=== PATIENT | male | born 1975 | race Caucasian/White ===

== ENCOUNTER 2019-08-23 15:45 | Outpatient (CLI) | payer OTHER, SELFPAY ==
[2019-08-23 16:34] LABS: ALT 136 U/L (16-63); AST 50 U/L (15-37); Albumin 3.9 g/dL (3.4-5.0); Alkaline Phosphatase 86 U/L (46-116); BUN 15 mg/dL (7-18); Bilirubin, Total 0.5 mg/dL (0.2-1.0); CREATININE 0.91 mg/dL (0.70-1.30); Calcium 9.9 mg/dL (8.5-10.1); Chloride 103 mmol/L (98-107); Glucose 90 mg/dL (74-106); Potassium 4.1 mmol/L (3.5-5.1); Sodium 141 mmol/L (136-145); TSH (W/Ref FT4) 1.18 uIU/mL (0.36-3.74); Total Protein 7.2 g/dL (6.4-8.2)
[2019-08-23 16:54] LABS: D-Dimer 335 ng/mlFEU (<500)
[2019-08-27 14:09] LABS: Hepatitis A Antibody IgM Negative (Negative); Hepatitis B Core Antibody Negative (Negative); Hepatitis B surface Ag Negative (Negative); Hepatitis C Ab w Rflx HCV PCR Negative (Negative)
== END 2019-08-23 16:05 ==
PROVIDERS: PCP Family Medicine; Visit Provider Nurse Practitioner Family
DX: R06.02 Shortness of breath (principal); M79.604 Pain in right leg; R14.0 Abdominal distension (gaseous); R60.0 Localized edema; E66.9 Obesity, unspecified; R74.0 Nonspecific elevation of levels of transaminase and lactic acid dehydrogenase [LDH]
CPT/HCPCS: 36415; 80053; 86704; 86709; 86803; 87340; 84443; 85379

== ENCOUNTER 2019-08-28 00:29 | Outpatient (CLI) | payer OTHER, SELFPAY ==
--- NOTE | 2019-08-28 | DI.US_ITS ---
EXAM: US ABDOMEN CLINICAL HISTORY: ELEVATED TRANSAMINASES, R74.0 TECHNIQUE: Ultrasound abdomen performed using standard protocol. COMPARISON: No exams were available for comparison FINDINGS: LIVER: 15.4 cm in length. Diffuse increased echogenicity consistent with hepatic steatosis. No hepa tic mass. Hepatopedal flow in the Portal Vein. GALLBLADDER: No evidence of cholelithiasis. No evidence of wall thickening. No pericholecystic fluid identified. KIDNEYS: Kidneys are symmetric in size. No evidence of renal calculi. No evidence of hydronephrosis. No renal mass or cyst identified. BILIARY SYSTEM: Common bile duct measures 2.8 mm. No intrahepatic biliary ductal dilation. BRUNO'S SIGN: Negative. PANCREAS: Normal where visualized. SPLEEN: Not enlarged. ABDOMINAL AORTA AND IVC: Visualized portions normal caliber. ASCITES: None seen. IMPRESSION: Hepatic steatosis. DATA REPOSITORY:
== END 2019-08-28 00:49 ==
PROVIDERS: PCP Family Medicine; Visit Provider Nurse Practitioner Family
DX: R74.0 Nonspecific elevation of levels of transaminase and lactic acid dehydrogenase [LDH] (principal); K76.0 Fatty (change of) liver, not elsewhere classified
CPT/HCPCS: 76700

== ENCOUNTER 2020-03-15 20:51 | Emergency (ER) | payer OTHER, SELFPAY ==
[2020-03-15 20:58] VITALS: BP 125/73; PULSE 91; RESP 20; TEMP 36.9; O2SAT 97
--- NOTE | 2020-03-15 21:00 | DI.RAD_ITS ---
EXAM: XR HIP RT COMPLETE AP PELVIS INDICATION: pain, trauma. COMPARISON: No exams were available for comparison TECHNIQUE: 2D digital imaging was performed. FINDINGS: No fracture or dislocation is seen. SI joints and pubic symphysis appear intact. There is minimal spurring at the acetabulum IMPRESSION: No acute abnormality. DATA REPOSITORY: RADIATION DOSE DELIVERED:
--- NOTE | 2020-03-15 21:00 | DI.RAD_ITS ---
EXAM: XR KNEE LT 4V AP,LAT,ALESHIA,PAT CLINICAL HISTORY: ant tender, trauma. TECHNIQUE: 2D digital imaging was performed. COMPARISON: CR LEFT KNEE COMPLETE from 08/28/2008 FINDINGS: BONES: No acute fracture is present. No bony destructive lesion is seen. JOINTS: The knee is normally aligned. No joint effusion is seen. SOFT TISSUE: Swelling and laceration in the prepatellar soft tissues. IMPRESSION: Prepatellar soft tissue swelling and laceration. DATA REPOSITORY: RADIATION DOSE DELIVERED:
--- NOTE | 2020-03-15 21:00 | DI.RAD_ITS ---
EXAM: XR ANKLE RT COMPLETE CLINICAL HISTORY: tender lat, trauma TECHNIQUE: 2D digital imaging was performed. COMPARISON: No exams were available for comparison FINDINGS: No fracture or ankle mortise widening is seen. The talar dome appears intact. There is there is min imal spurring at the Achilles insertion on the calcaneus. IMPRESSION: No acute abnormality.
--- NOTE | 2020-03-15 21:13 | ED.GENADUL_ITS ---
Discharge Plan Disposition Patient Disposition: HOME Condition: Stable Discharge Details Clinical Impression: Fall down embankment ([place]), initial encounter, Laceration of knee, left, Abrasions of multiple sites, Contusion of hip, right, Right ankle sprain Primary Care Provider: Lucy Briceno ED Provider: Jefferson Slater Home Meds and New Rx's Prescriptions: New cephalexin [Keflex] 500 mg capsule 500 mg PO BID Qty: 6 RF: 0 Continued Flovent HFA 120 PUFF HFA aerosol inhaler 2 puff Inhalation PRN PRNRF: 0 omeprazole 20 mg Capsule,Delayed Release(Dr/Ec) 20 mg PO DAILY PRNRF: 0 Discharge Instructions Instructions: Ankle Sprain (ED), Laceration (ED), Contusion in Adults (ED), Abrasion (ED) Additional Instructions: Your sutures need to be removed in 12 to 14 days. Dressing intact for next 2 days and then change dressing daily thereafter. Monitor for signs of infection including increased warmth, redness, swelling, discharge or pain. Please take antibiotic as prescribed. Use ankle stabilizer to provide ankle support. If pain persist you should have additional diagnostic imaging. Please contact your primary care physician to arrange follow-up. Return to the ER for any worsening or new concerning symptoms. Referrals: Lucy Briceno [Primary Care Provider] - Medical Decision Making 2121??44-year-old male here after fall down steep hill with injury to his lower extremities bilaterally. Patient has complex laceration anterior left knee with some tenderness in that area. Consider patellar fracture. Patient also with tenderness to right hip and right lateral ankle. Consider fracture. Will obta in x-ray imaging. Tetanus up-to-date. Will anesthetize wound and irrigate. --X-ray of the right ankle was reviewed interpreted by radiology: No acute bony pathology. X-ray of the left knee was reviewed interpreted by radiology: No acute bony pathology. Soft tissue swelling anterior knee. Quadriceps and patellar tendons appear grossly intact and there is no significant joint effusion. X-ray of the right hip with pelvis reviewed and interpreted by radiology: No acute bony pathology. --Copious irrigation and extensive cleansing, complex suture repair with subcutaneous and cutaneous sutures. Wound borders well approximated and hemostasis achieved. Sterile dressing applied. Other abrasions were cleansed by nursing. Usual customary discharge instructions reviewed with the patient. HPI General Mode of arrival: ambulatory . Date/Time Provider Initiated Documentation: 03/15/20 20:52 . Limitations to Documentation: no limitations . Information obtained by: patient . HPI Narrative: 44-year-old male presents with chief complaint of right leg pain. Patient notes he was hiking in on a steep section off [place] and slipped and fell down 2 sections of the slope inj uring his right ankle and right hip as well as left knee. Pain is moderate worse with ambulation. He sustained laceration to the left knee. Wound was initially bleeding. Bleeding has stopped. Related Data Home Medications Medication Instructions Recorded Confirmed Flovent HFA 2 puff INHALATION PRN PRN 09/03/15 03/15/20 cephalexin [Keflex] 500 mg PO BID #6 cap 03/15/20 omeprazole 20 mg PO DAILY PRN 03/15/20 03/15/20 Previous Rx's Medication Instructions Recorded cephalexin [Keflex] 500 mg PO BID #6 cap 03/15/20 Allergies Allergy/AdvReac Type Severity Reaction Status Date / Time acetaminophen [From Vicodin] AdvReac Intermediate Dizziness/L Unverified 03/15/20 21:12 ightheade hydrocodone [From Vicodin] AdvReac Intermediate Dizziness/L Unverified 03/15/20 21:12 ightheade General Stated Complaint: Trauma PROSPER: 2 Review of Systems All systems reviewed & are unremarkable except as noted in HPI and below Cardiovascular Cardiovascular: Denies dyspnea Respiratory Respiratory: Denies dyspnea Gastrointestinal Gastrointestinal: Denies abdominal pain Musculoskeletal Musculoskeletal: Reports as per HPI Integumentary/Breasts Skin/Breast: Reports as per HPI [facility] Social History Smoking/Tobacco Use Status: Never Alcohol Intake: never Drug use: Never Substance use type: does not use Do you feel safe at home: Yes Do you feel safe in your relationship?: Yes Exam Const General: cooperative and no acute distress HENMT Head: normocephalic and atraumatic Mouth: moist mucous membranes Eyes Conjunctivae: normal conjunctivae Sclera: normal sclerae Neck Neck: full ROM, trachea midline, supple and nontender Resp Auscultation: clear to auscultation bilaterally, no rales, no rhonchi and no wheezes Cardio Rate: regular rate and not tachycardic Rhythm: regular rhythm GI Palpation: soft, not firm, no guarding, no masses, not rigid and nontender Back/Spine/Pelvis Cervical Spine: cervical ROM normal, No cervical spinal tenderness and No step off deformity Thoracic/Lumbar Spine: No thoracic spinal tenderness and No lumbar spinal tenderness Skin Trauma: abrasion (Multiple bilateral lower extremities) and laceration (Complex over left knee extending deep and adipose) Other: Right fourth nail with some bleeding from at the end of the game, nailbed intact Neuro General: patient alert, patient awake and tone normal Sensory Exam: no sensory deficits noted Extrem Right lower extremity: hip/thigh Details: tenderness Location: of the hip and abrasion; no swelling, knee Details: no tenderness and no swelling, lower leg Details: abrasion; no tenderness and ankle Details: tenderness Location: of the lateral malleolus Left lower extremity: knee Details: tenderness Location: of the patella and laceration (Anteriorly) Other: Patellar and quadriceps tendon intact patient able to raise his leg and keep extended Psych Appearance: grossly normal Mental Status: mental status grossly normal Course Vital Signs Vital signs: Vital Signs Temperature 36.9 C 03/15/20 20:58 Pulse 91 H 03/15/20 20:58 Respiratory Rate 20 03/15/20 20:58 Blood Pressure 125/73 03/15/20 20:58 Pulse Oximetry 97 03/15/20 20:58 Temperature 36.9 C 03/15/20 20:58 Temperature Source Temporal Artery Scan 03/15/20 20:58 Pulse 91 H 03/15/20 20:58 Respiratory Rate 20 03/15/20 20:58 Respiratory Effort Non-Labored 03/15/20 21:03 Blood Pressure 125/73 03/15/20 20:58 Blood Pressure Position Sitting 03/15/20 20:58 Pulse Oximetry 97 03/15/20 20:58 Oxygen Delivery Method Room Air 03/15/20 20:58 Oxygen Flow Rate 0 03/15/20 20:58 Procedures Laceration Laceration 1: Site: lower extremity Side (If applicable): left Size (cm): 7 Description: stellate Local Anesthetic: Lidocaine 1% and with Epi Amount of anesthesia used (mL): 5 Pre-repair: wound explored, irrigated extensively and deep structures intact Skin layer closed with: nylon Size (cm): 4-0 Number of sutures: 14 Subcutaneous layer closed with: vicryl Size: 4-0 Number of sutures: 4 Technique: simple, interrupted
[2020-03-15] MEDS: Lidocaine/Epinephri/Tetracaine Topical Gel 3 ML TP (21:20)
[2020-03-15 21:54] VITALS: BP 131/84; PULSE 85; RESP 18; O2SAT 98
--- NOTE | 2020-03-15 22:00 | DI.VRAD_ITS ---
PROCEDURE INFORMATION: Exam: XR Left Knee Exam date and time: 03/15/2020 21:28 Age: 44 years old Clinical indication: Pain; Knee; Left; Patient HX: Anterior tenderness TECHNIQUE: Imaging protocol: XR Left knee. Views: 4 or more views. COMPARISON: No relevant prior studies available. FINDINGS: Bones/joints: Minimal degenerative changes in the medial and lateral compartments. No acute fracture or subluxation. Soft tissues: Soft tissue swelling, anterior knee. Quadriceps and patellar tendons appear grossly intact and there is no significant joint effusion. IMPRESSION: 1. No acute bony pathology. 2. Soft tissue swelling, anterior knee. Quadriceps and patellar tendons appear grossly intact and there is no significant joint effusion. Dictated and Authenticated by: Elena Ledesma MD. Ordering:INA Paulino MD
--- NOTE | 2020-03-15 22:01 | DI.VRAD_ITS ---
PROCEDURE INFORMATION: Exam: XR Right Hip with Pelvis when Performed Exam date and time: 03/15/2020 21:25 Age: 44 years old Clinical indication: Hip pain; Right hip; Patient HX: Pain, trauma TECHNIQUE: Imaging protocol: XR Right hip with pelvis when performed. Views: 2 or 3 views. COMPARISON: No relevant prior studies available. FINDINGS: Bones/joints: No acute fracture or subluxation. Soft tissues: Unremarkable. IMPRESSION: No acute bony pathology. Dictated and Authenticated by: Elena Ledesma MD. Ordering:INA Paulino MD
--- NOTE | 2020-03-15 22:01 | DI.VRAD_ITS ---
PROCEDURE INFORMATION: Exam: XR Right Ankle Exam date and time: 03/15/2020 21:31 Age: 44 years old Clinical indication: Pain; Ankle; Right; Patient HX: Tender lateral TECHNIQUE: Imaging protocol: XR Right ankle. Views: 3 or more views. COMPARISON: No relevant prior studies available. FINDINGS: Bones/joints: No acute fracture or subluxation. Posterior calcaneal spur. Soft tissues: Generalized soft tissue swelling. IMPRESSION: No acute bony pathology. Dictated and Authenticated by: Elena Ledesma MD. Ordering:INA Paulino MD
[2020-03-15] MEDS: Cephalexin 500 MG CAP PO (22:41)
[2020-03-15] MEDS: Bacitracin 1 PACKET (23:07)
== END 2020-03-15 23:05 | disposition home or self-care (01) ==
PROVIDERS: Emergency Provider Student in an Organized Health Care Education/Training Program; PCP Family Medicine
DX: S81.012A Laceration without foreign body, left knee, initial encounter (principal); S70.211A Abrasion, right hip, initial encounter; S90.511A Abrasion, right ankle, initial encounter; S93.401A Sprain of unspecified ligament of right ankle, initial encounter; W17.81XA Fall down embankment (hill), initial encounter; Y93.01 Activity, walking, marching and hiking
CPT/HCPCS: 12032; 99283; 73502; 73564; 73610; 99282; L1902

== ENCOUNTER 2020-03-21 17:25 | Emergency (ER) | payer OTHER, SELFPAY ==
--- NOTE | 2020-03-21 17:26 | W.ED.GENAD ---
Discharge Plan Disposition Patient Disposition: HOME Condition: Stable Discharge Details Clinical Impression: Cellulitis of knee, left, Visit for suture removal, Poison zena dermatitis Primary Care Provider: Lucy Briceno ED Provider: Nida Manrique Home Meds and New Rx's Prescriptions: New clindamycin HCl 150 mg capsule 450 mg PO TID 7 Days Qty: 63 RF: 0 mupirocin 2 % ointment 1 applic TP BID Qty: 15 RF: 0 prednisone 20 mg tablet See Rx Instructions .ROUTE .COMPLEX Qty: 36 RF: 0 Continued Flovent HFA 120 PUFF HFA aerosol inhaler 2 puff Inhalation PRN PRNRF: 0 omeprazole 20 mg Capsule,Delayed Release(Dr/Ec) 20 mg PO DAILY PRNRF: 0 cephalexin [Keflex] 500 mg capsule 500 mg PO BID Qty: 6 RF: 0 Discharge Instructions Instructions: Cellulitis (ED), Poison Zena (ED) Additional Instructions: Take the antibiotics and steroids until finished. Use the topical antibiotic ointment as directed. Wash the area with soap and water and pat dry. Keep wound clean and dry. Cover wound with bandage if risk of contamination or injury and while sleeping at night. Otherwise you can keep the wound open to air if resting at home to allow edges to dry and heal. Return to the emergency department in 2 days for wound check. Return to the emergency department earlier at any time if you develop any worsening or new concerning symptoms such as fever, increased pain, redness or swelling. Discharge Data Discharge Date/Time-TO BE ENTERED AT DEPARTURE: 03/21/20 18:20 Discharge Physician: Nida Manrique Medical Decision Making 44yo M who is 6 days s/p fall with L knee laceration and suture placement presents with redness and pus drainage around wound site as well as poison zena rash. Patient appears nontoxic. He has [address] at left knee laceration site. There is white soft macerated tissue noted to left anterior knee. There is surrounding mild erythema but no significant pain with flexion. Presentation not consistent with septic joint at this time. Patient is also noted to have erythematous papules and vesicles some arranged in clusters in linear fashion to the bilateral lower extremities and right back consistent with poison zena dermatitis. 7 sutures removed at bedside to allow wound to drain if needed. 7 sutures still remaining in place. Area was irrigated and covered with bacitracin and nonadherent dressing. Will start with clindamycin for early cellulitis in addition to Bactroban ointment. We will also start on p.o. steroids for poison zena dermatitis. Skin markings placed around areas of mild erythema. Patient advised to return here in 2 days for wound check. He is advised to return here earlier with any concerning infectious symptoms such as fever, increased pain or significant worsening. Medical Records Medical records reviewed: Yes I reviewed the patient's medical records. HPI General Mode of arrival: ambulatory. Date/Time Provider Initiated Documentation: 03/21/20 17:25. Limitations to Documentation: no limitations. Information obtained by: patient. HPI Narrative: Patient is a 44-year-old male who is 6 days status post fall with left knee laceration who presents with concern for infection at his left knee wound site. Patient states he removed the dressing for the first time yesterday and allowed water to hit it in the shower and noticed the area around the site was mildly red and draining yellowish-red liquid. He denies any significant worsening pain. He states his marked the area of redness around the knee today. He denies any known fever. He states he was given 6 tabs of Keflex which he took after his initial injury. He also states he started developing a poison zena rash on his legs which he was exposed to at the time of his fall that is now worsening on his legs and back. He states he has been using calamine lotion without relief. Related Data Home Medications Medication Instructions Recorded Confirmed Flovent HFA 2 puff INHALATION PRN PRN 09/03/15 03/15/20 cephalexin [Keflex] 500 mg PO BID #6 cap 03/15/20 omeprazole 20 mg PO DAILY PRN 03/15/20 03/15/20 clindamycin HCl 450 mg PO TID 7 Days #63 cap 03/21/20 mupirocin 1 applic TP BID #15 gm 03/21/20 prednisone See Rx Instructions .ROUTE 03/21/20 .COMPLEX #36 tab Previous Rx's Medication Instructions Recorded cephalexin [Keflex] 500 mg PO BID #6 cap 03/15/20 clindamycin HCl 450 mg PO TID 7 Days #63 cap 03/21/20 mupirocin 1 applic TP BID #15 gm 03/21/20 prednisone See Rx Instructions .ROUTE 03/21/20 .COMPLEX #36 tab Allergies Allergy/AdvReac Type Severity Reaction Status Date / Time acetaminophen [From Vicodin] AdvReac Intermediate Dizziness/L Unverified 03/21/20 17:37 ightheade hydrocodone [From Vicodin] AdvReac Intermediate Dizziness/L Unverified 03/21/20 17:37 ightheade General PROSPER: 2 Review of Systems All systems reviewed & are unremarkable except as noted in HPI and below Constitutional Constitutional: Reports as per HPI, Denies chills and Denies fever(s) Eyes Eyes: Denies blurry vision ENT Ears, Nose, Mouth, and Throat: Denies dizziness, Denies sore throat and Denies throat swelling Cardiovascular Cardiovascular: Denies chest pain and Denies dyspnea Respiratory Respiratory: Denies cough and Denies dyspnea Gastrointestinal Gastrointestinal: Denies abdominal pain, Denies diarrhea and Denies vomiting Genitourinary Genitourinary: Denies hematuria and Denies dysuria Musculoskeletal Musculoskeletal: Denies back pain and Denies numbness Integumentary/Breasts Skin/Breast: Denies lesions and Reports rash Neurologic Neurologic: Denies dizziness, Denies localized weakness and Denies numbness Allergic/Immunologic Allergic/Immunologic: Denies throat swelling [facility] Medical History (Updated 03/21/20 @ 18:10 by Nida Manrique DO) No significant past medical history Surgical History (Updated 03/21/20 @ 18:10 by Nida Manrique DO) No significant past surgical history Social History Smoking/Tobacco Use Status: Never Alcohol Intake: never Drug use: Never Substance use type: does not use Do you feel safe at home: Yes Do you feel safe in your relationship?: Yes Exam Const General: cooperative, healthy appearing and no acute distress HENMT Head: normal to inspection Mouth: oral mucosae normal Eyes General: appearance normal, both eyes and all related structures Neck Neck: normal visual inspection Resp Effort & Inspection: normal respiratory effort and able to speak in complete sentences Cardio Rate: regular rate Back/Spine/Pelvis Back/spine/pelvis image: 1. Raised erythematous papules and vesicles. Skin Other: Scattered papules and vesicles, some in ranged in linear fashion or clusters noted to bilateral lower extremities. There is calamine lotion noted overlying rash. There is minimal edema of bilateral lower extremities. Neuro General: patient alert, patient awake and patient oriented x3 Motor: muscle tone normal throughout Extrem Knee images: 1. Laceration with [address] There is white surrounding soft macerated tissue. There is serous drainage but no yellow pus. 2. Area outlining mild erythema extending from wound site. There is mild erythema within this area, more pronounced just superior to the laceration. There is no fluctuance, induration. Other: No significant pain with motion at left knee. Minimal tenderness to palpation of left anterior knee. Distal pulses intact. Psych Appearance: grossly normal Affect: normal affect Procedures Laceration Laceration 1: Size (cm): 6
[2020-03-21 17:29] VITALS: BP 140/91; PULSE 93; RESP 14; TEMP 36.6; O2SAT 96
[2020-03-21] MEDS: predniSONE 20 MG TAB 60 MG PO (18:01)
[2020-03-21] MEDS: Clindamycin 150 MG CAP 450 MG PO (18:01)
[2020-03-21] MEDS: Clindamycin 150 MG CAP, 12 CAPS/BTL 450 MG PO (18:20)
== END 2020-03-21 18:20 | disposition home or self-care (01) ==
PROVIDERS: Emergency Provider Physician Assistant; PCP Family Medicine
DX: S81.012A Laceration without foreign body, left knee, initial encounter (principal); W17.81XA Fall down embankment (hill), initial encounter; L03.116 Cellulitis of left lower limb; L23.7 Allergic contact dermatitis due to plants, except food
CPT/HCPCS: 99283; J7512

== ENCOUNTER 2020-03-31 10:25 | Emergency (ER) | payer OTHER, SELFPAY ==
[2020-03-31 10:29] VITALS: BP 130/79; PULSE 72; RESP 15; TEMP 36.4; O2SAT 98
--- NOTE | 2020-03-31 10:49 | ED.GENADUL_ITS ---
Discharge Plan Disposition Patient Disposition: HOME Condition: Stable Discharge Details Clinical Impression: Visit for suture removal Primary Care Provider: Lucy Briceno ED Provider: Alisia Ramesh Home Meds and New Rx's Prescriptions: New cephalexin 500 mg tablet 500 mg PO BID 5 Days Qty: 10 RF: 0 No Action Flovent HFA 120 PUFF HFA aerosol inhaler 2 puff Inhalation PRN PRNRF: 0 mupirocin 2 % ointment 1 applic TP BID Qty: 15 RF: 0 prednisone 20 mg tablet See Rx Instructions .ROUTE .COMPLEX Qty: 36 RF: 0 clindamycin HCl 150 mg capsule 450 mg PO TID RF: 0 omeprazole 20 mg Capsule,Delayed Release(Dr/Ec) 20 mg PO DAILY PRNRF: 0 cephalexin [Keflex] 500 mg capsule 500 mg PO BID Qty: 6 RF: 0 Discharge Instructions Instructions: Acute Wounds (ED), Stitches Removal (ED) Additional Instructions: Follow up with primary care provider in 3-5 days. Return to ED sooner if any worsening or concerns. Increase oral fluids. Please take Tylenol or Ibuprofen with food every 4-6 hours as needed for pain and swelling. Keep clean and dry. Return for any worsening redness swelling or any concerns. Referrals: Lucy Briceno [Primary Care Provider] - Discharge Data Discharge Date/Time-TO BE ENTERED AT DEPARTURE: 03/31/20 11:01 Medical Decision Making 44-year-old male presents to the ED for suture removal to his left knee. Patient had sutures placed approximately 10 days ago and was treated for cellulitis of his knee. 7 sutures were since removed to allow me to drain. He does have 7 sutures simple interrupted in place. There is a healing laceration noted vertically to his anterior knee. There is some yellow purulent drainage noted to the wound bed. He is currently taking clindamycin 3 times a day and prednisone daily on a tapering dose. Initial injury involved him sliding down a couple of hills through [place] landing on all fours sustaining a laceration. He reports that the erythema has decreased since then, swelling has gone down, no fevers or chills. 7 sutures removed, rest of the wound will be healed by secondary intention. Will place patient on approximately 7 days of cephalexin. He also is reporting right ankle pain from previous injury, we did do x-rays at the time of the injury which were negative for fracture. 7 simple interrupted sutures removed patient instructed on home care. Patient has 2 days left of clindamycin prescription and is taking prednisone for poison ju[place] jose. Will place patient on 5 more days of cephalexin 5 oh milligrams twice a day. Instructed to keep clean and dry, verbalized understanding. Patient is still complaining of right ankle pain discussed sprain and healing time with patient and reiterated rest, ice, compression, elevation. Verbalized understanding. He does have a home which he is not wearing upon arrival at this time. HPI General Mode of arrival: ambulatory . Date/Time Provider Initiated Documentation: 03/31/20 10:26 . Limitations to Documentation: no limitations . Information obtained by: patient . HPI Narrative: 44-year-old male presents to the ED for suture removal to his left knee. Patient had sutures placed approximately 10 days ago and was treated for cellulitis of his knee. 7 sutures were since removed to allow me to drain. He does have 7 sutures simple interrupted in place. There is a healing laceration noted vertically to his anterior knee. There is some yellow purulent drainage noted to the wound bed. He is currently taking clindamycin 3 times a day and prednisone daily on a tapering dose. Initial injury involved him sliding down a couple of hills through [place] landing on all fours sustaining a laceration. He reports that the erythema has decreased since then, swelling has gone down, no fevers or chills. 7 sutures removed, rest of the wound will be healed by secondary in tention. Will place patient on approximately 7 days of cephalexin. He also is reporting right ankle pain from previous injury, we did do x-rays at the time of the injury which were negative for fracture. Related Data Home Medications Medication Instructions Recorded Confirmed Flovent HFA 2 puff INHALATION PRN PRN 09/03/15 03/31/20 cephalexin [Keflex] 500 mg PO BID #6 cap 03/15/20 omeprazole 20 mg PO DAILY PRN 03/15/20 03/31/20 mupirocin 1 applic TP BID #15 gm 03/21/20 03/31/20 prednisone See Rx Instructions .ROUTE 03/21/20 03/31/20 .COMPLEX #36 tab cephalexin 500 mg PO BID 5 Days #10 tab 03/31/20 clindamycin HCl 450 mg PO TID 03/31/20 03/31/20 Previous Rx's Medication Instructions Recorded cephalexin [Keflex] 500 mg PO BID #6 cap 03/15/20 mupirocin 1 applic TP BID #15 gm 03/21/20 prednisone See Rx Instructions .ROUTE 03/21/20 .COMPLEX #36 tab cephalexin 500 mg PO BID 5 Days #10 tab 03/31/20 Allergies Allergy/AdvReac Type Severity Reaction Status Date / Time acetaminophen [From Vicodin] AdvReac Intermediate Dizziness/L Unverified 03/31/20 10:38 ightheade hydrocodone [From Vicodin] AdvReac Intermediate Dizziness/L Unverified 03/31/20 10:38 ightheade General Stated Complaint: Orthopedic PROSPER: 4 Review of Systems All systems reviewed & are unremarkable except as noted in HPI and below Integumentary/Breasts Skin/Breast: Reports wounds (Has [address], laceration appears infected) PFSH Medical History No significant past medical history Surgical History No significant past surgical history Social History Smoking/Tobacco Use Status: Never Alcohol Intake: never Drug use: Never Substance use type: does not use Do you feel safe at home: Yes Do you feel safe in your relationship?: Yes Exam Narrative Exam Narrative: Constitutional: Alert and oriented x3. Appears stated age. Normal body habitus. Head: Normocephalic, no trauma. Eyes: Pupils PERRLA, Red reflex noted, EOM's intact. Eyelids symmetrical without lesions, discharge, or swelling. ENT: Bilateral TM's WNL, External ear normal to inspection, no mastoid TTP, swelling, or erythema, Nasal turbinates WNL, no nasal discharge. Normal dentition, Posterior pharynx WNL, no exudate. Chest: RRR, Normal S1, S2, distal pulses intact. Resp: Lungs clear to auscultation bilaterally, no wheezes, rales, or rhonchi. Musculoskeletal: Normal gait, 5/5 strength to all four extremities. Skin: Capillary refill less than 2 sec. has a laceration which has been pre viously been sutured to the left anterior knee which is a vertical incision. There is yellow purulent drainage noted to the wound bed. [address] which were removed at this visit. Wound was cleaned with chlorhexidine. Nonadherent dry dressing applied. Neurologic: Cranial nerves II-XII intact. Alert and oriented x 3. DTR's intact. Hematologic/Lymphatic: No ecchymosis, no lymphadenopathy. Course Vital Signs Vital signs: Vital Signs Temperature 36.4 C L 03/31/20 10:29 Pulse 72 03/31/20 10:29 Respiratory Rate 15 03/31/20 10:29 Blood Pressure 130/79 03/31/20 10:29 Pulse Oximetry 98 03/31/20 10:29 Temperature 36.4 C L 03/31/20 10:29 Temperature Source Temporal Artery Scan 03/31/20 10:29 Pulse 72 03/31/20 10:29 Respiratory Rate 15 03/31/20 10:29 Respiratory Effort Non-Labored 03/31/20 10:33 Blood Pressure 130/79 03/31/20 10:29 Blood Pressure Position Sitting 03/31/20 10:29 Pulse Oximetry 98 03/31/20 10:29 Oxygen Delivery Method Room Air 03/31/20 10:29 Oxygen Flow Rate 0 03/31/20 10:29 Pain Level 5 03/31/20 10:35
== END 2020-03-31 11:01 | disposition home or self-care (01) ==
PROVIDERS: Emergency Provider Registered Nurse Emergency; PCP Family Medicine
DX: S81.012D Laceration without foreign body, left knee, subsequent encounter (principal); W17.81XD Fall down embankment (hill), subsequent encounter; Z48.02 Encounter for removal of sutures; M25.571 Pain in right ankle and joints of right foot; L03.116 Cellulitis of left lower limb; L23.7 Allergic contact dermatitis due to plants, except food
CPT/HCPCS: 99283; 99281

== ENCOUNTER 2020-04-06 16:25 | Emergency (ER) | payer OTHER, SELFPAY ==
[2020-04-06 16:31] VITALS: BP 137/96; PULSE 80; RESP 16; TEMP 36.3; O2SAT 94
[2020-04-06 16:33] VITALS: BP 137/96; PULSE 80; RESP 16; TEMP 36.4; O2SAT 94
--- NOTE | 2020-04-06 16:45 | DI.RAD_ITS ---
EXAM: XR KNEE LT 3V AP,LAT,ALESHIA CLINICAL HISTORY: Wound, R/O effusion, osteomyelitis. TECHNIQUE: 2D digital imaging was performed. COMPARISON: CR,XR XR KNEE LT 4V AP,LAT,ALESHIA,PAT from 03/15/2020 FINDINGS: BONES: No acute fracture is present. No bony destructive lesion is seen. JOINTS: The knee is normally aligned. No joint effusion is seen. SOFT TISSUE: There is soft tissue swelling anterior to the patella. No abnormal gas collection or fo reign body is seen. IMPRESSION: Prepatellar soft tissue swelling. DATA REPOSITORY: RADIATION DOSE DELIVERED:
--- NOTE | 2020-04-06 16:50 | W.ED.GENAD ---
Discharge Plan Disposition Patient Disposition: HOME Condition: Stable Discharge Details Clinical Impression: Delayed wound healing Primary Care Provider: Lucy Briceno ED Provider: Alisia Ramesh Home Meds and New Rx's Prescriptions: New sulfamethoxazole-trimethoprim [Bactrim DS] 800-160 mg tablet 1 tab PO BID 10 Days Qty: 20 RF: 0 No Action Flovent HFA 120 PUFF HFA aerosol inhaler 2 puff Inhalation PRN PRNRF: 0 omeprazole 20 mg Capsule,Delayed Release(Dr/Ec) 20 mg PO DAILY PRNRF: 0 cephalexin [Keflex] 500 mg capsule 500 mg PO BID Qty: 6 RF: 0 Discharge Instructions Instructions: Wound Infection (ED), Acute Wound Care (ED) Additional Instructions: Follow up with primary care provider in 3-5 days. Return to ED sooner if any worsening or concerns. Increase oral fluids. Please take Tylenol or Ibuprofen with food every 4-6 hours as needed for pain and swelling. Take antibiotic as directed. Take probiotic or eat yogurt daily while on antibiotics. Follow-up with orthopedics if no improvement in the next 1 to 2 weeks. Referrals: Lucy Briceno [Primary Care Provider] - Flash Chu MD [ [facility] STAFF PHYSICIAN] - Discharge Data Discharge Date/Time-TO BE ENTERED AT DEPARTURE: 04/06/20 17:55 Medical Decision Making At this time wound culture ordered and sent by medical staff credentialing coordinator, will give 1 g of Ceftriaxone IM here in department and start patient on Bactrim for possible septic bursitis. Discussed delayed wound healing with patient and discussed that prednisone is probably delaying the wound healing even more so at this point. Given that patient has no systemic symptoms or complaints of fever, body aches or chills I do suspect this infection remains localized to his anterior knee. Imaging ordered to rule out effusion or possible osteomyelitis. Imaging protocol: XR Left knee. Views: 3 views. COMPARISON: CR XR KNEE LT 4V AP,LAT,ALESHIA,PAT 03/15/2020 9:26 PM FINDINGS: Bones/joints: There is no definite acute fracture. No significant stranding in [place] fat pad. Soft tissues: There is diffuse prepatellar soft tissue swelling, improved from the previous exam. There has been interval improvement of laceration anterior to patella. There is narrowing of lateral aspect of patellofemoral joint with widening on medial aspect. There is mild lateral subluxation of patella. IMPRESSION: There is mild lateral subluxation of patella which could be seen in transient patellar dislocation or ligamentous injury of medial patellofemoral ligament. There is improved but residual soft tissue swelling on pre patellar surface. No acute fracture. MRI might be considered, if patient is symptomatic. Thank you for allowing us to participate in the care of your patient. Dictated and Authenticated by: Sergey Dinh DO Discussed x-ray results with patient who verbalizes understanding. Discussed continuation of antibiotic, will place patient on Bactrim twice daily x10 days. Discussed delayed wound healing and home care. Discussed follow-up with orthopedics and/or PCP for further wound management and follow-up. HPI General Mode of arrival: ambulatory. Date/Time Provider Initiated Documentation: 04/06/20 16:27. Limitations to Documentation: no limitations. Information obtained by: patient. HPI Narrative: 44-year-old male presents to the ED with chief complaint of nonhealing wound and drainage to his left knee. Patient was originally seen on 03/15 after a fall down an embankment. He had 14 sutures placed at that time. He then was seen on March 21, 2020 for cellulitis to the wound. He had 7 sutures removed at that time and was placed on clindamycin 3 times a day for 7 days and prednisone for a concurrent poison juan jose infection. He presented on March 31, 2020 for suture removal. He was almost done with his clindamycin. He was placed on 5 more days of cephalexin at that time. He presents today with delayed wound healing, and increased yellow purulent serosanguineous drainage noted from the wound bed. He denies any fever, chills, pain in her leg or any systemic symptoms. He reports he was able to express some drainage today. He rates his pain 2 or 3 out of 10 and has no trouble ambulating on extremity. Related Data Home Medications Medication Instructions Recorded Confirmed Flovent HFA 2 puff INHALATION PRN PRN 09/03/15 04/06/20 cephalexin [Keflex] 500 mg PO BID #6 cap 03/15/20 04/06/20 omeprazole 20 mg PO DAILY PRN 03/15/20 04/06/20 sulfamethoxazole-trimethoprim 1 tab PO BID 10 Days #20 tab 04/06/20 [Bactrim DS] Previous Rx's Medication Instructions Recorded cephalexin [Keflex] 500 mg PO BID #6 cap 03/15/20 sulfamethoxazole-trimethoprim 1 tab PO BID 10 Days #20 tab 04/06/20 [Bactrim DS] Allergies Allergy/AdvReac Type Severity Reaction Status Date / Time hydrocodone [From Vicodin] AdvReac Intermediate Dizziness/L Unverified 04/06/20 16:39 ightheade General Stated Complaint: Cellulitis PROSPER: 4 Review of Systems Narrative: Constitutional: Negative for weight loss, alert and oriented, well groomed, normal body habitus, appears comfortable. HEENT: Denies trauma, headaches, blurry vision, nasal discharge, sore throat, trouble swallowing. Chest: Denies chest pain, palpitations, irregular rhythm, hypertension. Respiratory: Denies Shortness of breath, cough, hemoptysis. GI: Denies abdominal pain, nausea, vomiting, diarrhea, constipation. : Denies dysuria, hematuria, flank pain, rectal bleeding. Skin: As noted in HPI he has a delayed wound healing noted to his anterior left knee. An old laceration noted approximately 6 cm in length, it is vertical. Neuro: Denies dizziness, blurry vision, weakness, syncope, headache or facial numbness. Hematologic: Denies easy bruising, intolerance to heat or cold, hair loss. [facility] Medical History No significant past medical history Surgical History No significant past surgical history Social History Smoking/Tobacco Use Status: Never Alcohol Intake: never Drug use: Never Substance use type: does not use Do you feel safe at home: Yes Do you feel safe in your relationship?: Yes Exam Narrative Exam Narrative: Constitutional: Alert and oriented x3. Appears stated age. Normal body habitus. Head: Normocephalic, no trauma. Chest: RRR, Normal S1, S2, distal pulses intact. Resp: Lungs clear to auscultation bilaterally, no wheezes, rales, or rhonchi. Musculoskeletal: Normal gait, 5/5 strength to all four extremities. Skin: He has a blade healing wound noted to his left anterior knee. There is approximately 6 cm in length and is vertical. It is open approximately 1 cm with a yellow, sanguinous wound bed noted. There is no significant surrounding swelling, no significant surrounding erythema, no lymphadenopathy. Capillary refill less than 2 sec. Neurologic: Cranial nerves II-XII intact. Alert and oriented x 3. DTR's intact. Hematologic/Lymphatic: No ecchymosis, no lymphadenopathy. Course Vital Signs Vital signs: Vital Signs Temperature 36.3 C L 04/06/20 16:31 Pulse 80 04/06/20 16:31 Respiratory Rate 16 04/06/20 16:31 Blood Pressure 137/96 H 04/06/20 16:31 Pulse Oximetry 94 04/06/20 16:31 Temperature 36.4 C L 04/06/20 16:33 Temperature Source Temporal Artery Scan 04/06/20 16:33 Pulse 80 04/06/20 16:33 Respiratory Rate 16 04/06/20 16:33 Respiratory Effort Non-Labored 04/06/20 16:33 Blood Pressure 137/96 H 04/06/20 16:33 Blood Pressure Position Sitting 04/06/20 16:33 Pulse Oximetry 94 04/06/20 16:33 Oxygen Delivery Method Room Air 04/06/20 16:33 Oxygen Flow Rate 0 04/06/20 16:33 Pain Level 3 04/06/20 16:33 Lab/Test Results Lab/Test Results: 04/06/20 16:48 Knee - Left Wound Culture - Pending 04/06/20 16:48 Knee - Left Gram Stain - Pending
[2020-04-06] MEDS: cefTRIAXone 1 GM VIAL IM (17:00)
[2020-04-06] MEDS: Sulfameth/Trimeth DS TAB 1 TAB PO (17:00)
--- NOTE | 2020-04-06 17:34 | DI.VRAD_ITS ---
PROCEDURE INFORMATION: Exam: XR Left Knee Exam date and time: 04/06/2020 5:12 PM Age: 44 years old Clinical indication: Injury or trauma; Fall; Patella or knee; Left; Foreign body involvement not specified; Injury date: 02/28/20; Injury details: Fell onto rocks, three rounds of antibiotics wound is still open and weeping TECHNIQUE: Imaging protocol: XR Left knee. Views: 3 views. COMPARISON: CR XR KNEE LT 4V AP,LAT,ALESHIA,PAT 03/15/2020 9:26 PM FINDINGS: Bones/joints: There is no definite acute fracture. No significant stranding in [place] fat pad. Soft tissues: There is diffuse prepatellar soft tissue swelling, improved from the previous exam. There has been interval improvement of laceration anterior to patella. There is narrowing of lateral aspect of patellofemoral joint with widening on medial aspect. There is mild lateral subluxation of patella. IMPRESSION: There is mild lateral subluxation of patella which could be seen in transient patellar dislocation or ligamentous injury of medial patellofemoral ligament. There is improved but residual soft tissue swelling on pre patellar surface. No acute fracture. MRI might be considered, if patient is symptomatic. Dictated and Authenticated by: Sergey Dinh MD. Ordering:CHRIS Crump MD
[2020-04-06 17:51] VITALS: BP 132/86; PULSE 80; RESP 16; TEMP 36.4; O2SAT 94
== END 2020-04-06 17:55 | disposition home or self-care (01) ==
PROVIDERS: Emergency Provider Registered Nurse Emergency; PCP Family Medicine
DX: T81.41XA Infection following a procedure, superficial incisional surgical site, initial encounter (principal); B96.5 Pseudomonas (aeruginosa) (mallei) (pseudomallei) as the cause of diseases classified elsewhere; T81.31XA Disruption of external operation (surgical) wound, not elsewhere classified, initial encounter; Y84.8 Other medical procedures as the cause of abnormal reaction of the patient, or of later complication, without mention of misadventure at the time of the procedure
CPT/HCPCS: 73562; 87077; 96372; 99284; 87070; 87186; 87205; J0696

== ENCOUNTER 2021-09-25 00:57 | Outpatient (CLI) | payer OTHER, SELFPAY ==
--- NOTE | 2021-09-25 | DI.RAD_ITS ---
Exam(s) XR SHOULDER RT COMPLETE 2+V EXAM: XR SHOULDER RT COMPLETE 2+V CLINICAL HISTORY: RT SHOULDER PAIN, M25.511. TECHNIQUE: 2D digital imaging was performed. COMPARISON: No exams were available for comparison FINDINGS: Four views No evidence of fracture or dislocation. Subacromial space unremarkable. No calcifications. AC join t bone density is. There are no osseous lesions ipsilateral clavicle appears unremarkable. IMPRESSION: No significant radiographic findings. DATA REPOSITORY: RADIATION DOSE DELIVERED:
== END 2021-09-25 01:17 ==
PROVIDERS: PCP Family Medicine; Visit Provider Family Medicine
DX: M25.511 Pain in right shoulder (principal)
CPT/HCPCS: 73030